=== PATIENT | female | born 2005 | race Caucasian/White ===

== ENCOUNTER 2023-01-04 11:02 | Outpatient (OUT) | payer BC, SELFPAY ==
[2023-01-05 04:09] LABS: RPR Non Reactive (Non Reactive)
[2023-01-05 05:08] LABS: HIV Ab/p24 Ag Screen Non Reactive (Non Reactive); Hepatitis B Surf Ab Quant <3.1 mIU/mL (Immunity>9.9)
== END 2023-01-04 11:03 | disposition home or self-care (01) ==
LOC: LAB 11:08
PROVIDERS: PCP Family Medicine; Visit Provider Family Medicine
DX: Z11.3 Encounter for screening for infections with a predominantly sexual mode of transmission (principal)
CPT/HCPCS: 36415; 86706; 87389

== ENCOUNTER 2024-12-15 19:37 | Outpatient (REF) | payer BC, SELFPAY ==
--- OUTSIDE RECORDS SUMMARY | 2024-12-15 13:00 | XMS_ITS | Encounter Summary ---
Author Organization [facility] Address [address] [facility] [place] [address] Care Team Providers Care Program Developer Name Role Phone Sneha Leon MD Primary Care Provider [phone] Reason for Visit * Reason Comments Gynecologic Exam Encounter Details Date Type Department Care Team (Late st Contact Info) Description 12/15/2024 1:00 PM EDT Office Visit [facility] [address] [facility] [place] [address] Opal Engel PA [address] [facility] [address] [place], [place] [address] Annual physical exam Social History Tobacco Use Types Packs/Day Years Used Date Smoking Tobacco: Never Smokeless Tobacco: Never Tobacco Cessation:Counseling Given: Not Answered Alcohol Use Standard Drinks/Week Comments Yes 2 (1 standard drink = 0.6 oz pur e alcohol) Comments Unknown Sex and Gender Information Value Date Recorded Sex Assigned at Not on file Legal Sex Female 11:48 PM EDT Gender Identity Not on file Sexual Orientation Not on file documented as of this encounter Last Filed Vital Signs Vital Sign Reading Time Taken Comments Blood Pressure 108/68 12/15/2024 1:05 PM EDT Pulse - - Temperature - - Respiratory Rate - - Oxygen Saturation - - Inhaled Oxygen Concentration - - Weight 75.2 kg (165 lb 12.8 oz) 12/15/2024 1:05 PM EDT Height - - Body Mass Index 28.46 05/22/2022 12:00 PM EST documented in this encounter Progress Notes * RAFAELA Warren - 12/15/2024 1:00 PM EDT Reason for Appointment: Patient ID: Sallie Yuen is a 19 y.o. female who presents for Gynecologic Exam Patient presents today for Annual Exam. and Return OB appointment. MEDICATIONS No current outpatient medications ALLERGIES Allergies Allergen Reactions Midol [Acetaminophen] Itching PROBLEMS Active Ambulatory Problems Diagnosis Date Noted No Active Ambulatory Problems Resolved Ambulatory Problems Diagnosis Date Noted No Resolved Ambulatory Problems Past Medical History: Diagnosis Date Pleurisy 2020 HISTORY PAST MEDICAL HISTORY SOCIAL HISTORY Past Medical History: Diagnosis Date Pleurisy 2020 Social History Tobacco Use Smoking status: Never Smokeless tobacco: Never Substance Use Topics Alcohol use: Yes Alcohol/week: 2.0 standard drinks of alcohol Types: 2 Glasses of wine per week Drug use: Never FAMILY HISTORY No family history on file. SURGICAL HISTORY No past surgical history on file. REVIEW OF SYSTEMS Review of Systems: Review of Systems Constitutional: Negative. HENT: Negative. Eyes: Negative. Respiratory: Negative. Cardiovascular: Negative. Gastrointestinal: Negative. Genitourinary: Negative. Musculoskeletal: Negative. Skin: Negative. Neurological: Negative. All other systems reviewed and are negative. Hematological: Negative. Endocrine: Negative. Allergic/Immunologic: Negative. OBJECTIVE Objective: Physical Exam Constitutional: Appearance: Normal appearance. She is well-developed. Genitourinary: Vulva normal. Right Adnexa: not tender and no mass present. Left Adnexa: not tender and no mass present. No cervical discharge. Breasts: Breasts are soft. Right: Normal. Left: Normal. HENT: Head: Normocephalic. Nose: Nose normal. Mouth/Throat: Mouth: Mucous membranes are moist. Cardiovascular: Rate and Rhythm: Normal rate and regular rhythm. Pulmonary: Effort: Pulmonary effort is normal. Breath sounds: Normal breath sounds. Abdominal: General: Bowel sounds are normal. There is no distension. Palpations: Abdomen is soft. Tenderness: There is no abdominal tenderness. There is no guarding or rebound. Musculoskeletal: General: No swelling. Normal range of motion. Cervical back: Normal range of motion. Right lower leg: No edema. Left lower leg: No edema. Neurological: General: No focal deficit present. Mental Status: She is alert and oriented to person, place, and time. Skin: General: Skin is warm and dry. Psychiatric: Mood and Affect: Mood normal. Behavior: Behavior normal. Vitals and nursing note reviewed. Exam conducted with a chancery clerk present. Vitals: Estimated body mass index is 28.46 kg/m² as calculated from the following: Height as of 12/12/22: 5' 4 . Weight as of this encounter: 165 lb 12.8 oz. BP: 108/68 No LMP recorded. ASSESSMENT & PLAN ICD-10-CM 1. Annual physical exam Z00.00 Pap Smear Annual Exam: Patient presents today for an annual exam. Patient states she is doing well and has no complaints. Pap was obtained without difficulty. No orders of the defined types were placed in this encounter. Follow Up: Patient is to return in 1 week or sooner for removal of Nexplanon removal And reinsertion and follow up in one year for annual unless needed otherwise. Patient reports spotting and AUB related to Nexplanon. Patient due for removal and reinsertion. We will get her on schedule for new nexplanon this week Documented by Yanique Castano NP on behalf of: RAFAELA Warren documented in this encounter Plan of Treatment Upcoming Encounters Date Type Department Care Team (Late st Contact Info) Description 12/18/2024 3:30 PM EDT [facility] [address] [facility] [place] [id number] Opal Engel PA [address] [place] [address] Scheduled Orders Name Type Priority Associated Diagnoses Orde r Schedule Pap Smear Pathology and Cytology Routine Annual physical exam Ordered: 12/15/2024 documented as of this encounter Visit Diagnoses Diagnosis Annual physical exam Routine general medical examination at a health care facility documented in this encounter Care Teams Program Developer Relationship Specialty Start Date End Date Sneha Leon MD [address] [place] [id number] PCP - General Family Medicine 12/15/24 documented as of this encounter
--- OUTSIDE RECORDS SUMMARY | 2024-12-15 19:43 | XMS_ITS | Clinical Summary ---
Author Organization [facility] Address [address] [facility] [place] [address] Care Team Providers Care Environmental Technical Officer Name Role Phone Sneha Leon MD Primary Care Provider [phone] Allergies Active Allergy Reactions Criticality Noted Date Comments Acetaminophen Itching Low 12/15/2024 Medications No known medications Encounters Date Type Department Care Team Description 12/15/2024 1:00 PM EDT Office Visit [facility] [address] [facility] [place] [address] Opal Engel PA Annual physical exam 12/15/2024 Bamboo flowsheet [facility] [address] [facility] [place] [address] Opal Engel PA from Last 3 Months Family History Relation Name Status Comments Maternal Grandmother colon c x Mother Graves disease Social History Tobacco Use Types Packs/Day Years [...] on file Sexual Orientation Not on file Last Filed Vital Signs Vital Sign Reading Time Taken Comments Blood Pressure 108/68 12/15/2024 1:05 PM EDT Pulse - - Temperature - - Respiratory Rate - - Oxygen Saturation - - Inhaled Oxygen Concentration - - Weight 75.2 kg (165 lb 12.8 oz) 12/15/2024 1:05 PM EDT Height 162.6 cm (5' 4 ) 05/22/2022 12:0 0 PM EST Body Mass Index 28.46 05/22/2022 12:00 PM EST Plan of Treatment Upcoming Encounters Date Type Department Care Team (Late st Contact Info) Description 12/18/2024 3:30 PM EDT Procedure Visit [facility] [address] [facility] [place] [address] Opal Engel PA [address] [place] [address] Health Maintenance Due Date Last Done Comments Influenza Vaccine (#1) 2025 9, 04/15/2012, 01/30/2012, Additional history exists Insurance [employer] Care Teams Environmental Technical Officer Relationship Specialty Start Date End Date Sneha Leon MD [address] [facility] [place] [phone] PCP - General Family Medicine 12/15/24
--- OUTSIDE RECORDS SUMMARY | 2024-12-15 19:43 | XMS_ITS | Encounter Summary ---
Author Organization [facility] Address [address] [facility] [place] [address] Care Team Providers Care Ob/Gyn Name Role Phone Sneha Leon MD Primary Care Provider Encounter Details Date Type Department Care Team (Late Contact Info) Description 12/15/2024 Bamboo flowsheet [facility] [address] [facility] [place] [place] [address] Opal Engel PA [address] [place] [address] [place] [address] Social History Tobacco Use Types Packs/Day Years Used Date Smoking Tobacco: Never Smokeless Tobacco: Never Alcohol Use Standard Drinks/Week Comments Yes 2 (1 standard drink = 0.6 oz pur e alcohol) Comments Unknown Sex and Gender Information Value Date Recorded Sex Assigned at Not on file Legal Sex Female 11:48 PM EDT Gender Identity Not on file Sexual Orientation Not on file documented as of this encounter Plan of Treatment Upcoming Encounters Date Type Department Care Team (Late Contact Info) Description 12/18/2024 3:30 PM EDT Procedure Visit [facility] [address] [facility] [place] [place] [address] Opal Engel PA [address] [place] [address] [address] [place], [facility] documented as of this encounter Visit Diagnoses Not on filedocumented in this encounter Care Teams Ob/Gyn Relationship Specialty Start Date End Date Sneha Leon MD [address] [place] [id number] PCP - General Family Medicine 12/15/24 documented as of this encounter
[2024-12-18 17:09] LABS: Age Gdln ACOG Testing Note (.); IGP, rfx Aptima HPV ASCU Note (.)
== END 2024-12-15 19:38 | disposition home or self-care (01) ==
LOC: LAB 19:37
PROVIDERS: PCP Family Medicine; Visit Provider Physician Assistant
DX: Z01.419 Encounter for gynecological examination (general) (routine) without abnormal findings (principal)
CPT/HCPCS: 88175